=== PATIENT | female | born 1960 | race Caucasian/White ===

== ENCOUNTER 2022-06-08 02:44 | Day surgery (SDC) | payer BC, SELFPAY ==
[2022-05-29 13:06] VITALS: BMI 30.1
--- NOTE | 2022-06-05 14:35 | PM.HPGS ---
History of Present Illness History of Present Illness Consent: Risks, benefits, and alternatives have been discussed and questions answered. Patient agrees to proceed with procedure. Chief complaint: neoplasm screening, GERD Narrative: Rosalie Hernandez is a 62 year old female Referred for colon cancer screening. She has had polyps removed in the past. She also suffers from chronic acid reflux symptoms. A CT scan of the chest revealed possible polyps in the upper gastrointestinal tract. Review of Systems Review of Systems: All systems reviewed & are unremarkable except as noted in HPI and below [facility] Past Medical History Medical History COPD (chronic obstructive pulmonary disease) GERD (gastroesophageal reflux disease) Hyperlipidemia Hypertension Peripheral vascular disease Social History Social History Smoking packs per day: 1 Smoking cigarettes per day: 20.0 Years smoked: 50 Smoking pack-years: 50.00 Smoking status: Current every day smoker Tobacco type: cigarettes Alcohol intake: current Substance use: never Substance use type: does not use Living arrangements: with family Spiritual care concerns: No Meds Home Medications and Allergies Home Medications Medication Instructions Recorded Confirmed Type albuterol sulfate 90 mcg/actuation 1 inh inhalation QID PRN Shortness 07/27/19 05/29/22 History aerosol inhaler (ProAir HFA) Of Breath Or Wheezing amlodipine 10 mg tablet 10 mg PO QPM 07/27/19 05/29/22 History ascorbic acid (vitamin C) 1,000 mg 1 g PO DAILY 07/27/19 05/29/22 History tablet (Vitamin C) clopidogrel 75 mg tablet (Plavix) 75 mg PO DAILY 07/27/19 05/29/22 History omeprazole 20 mg capsule,delayed 20 mg PO DAILY 07/27/19 05/29/22 History release quinapril 20 mg tablet 20 mg PO DAILY 07/27/19 05/29/22 History Vitamin D3 1 cap PO DAILY 05/29/22 05/29/22 History aspirin 81 mg tablet 81 mg PO DAILY 05/29/22 05/29/22 History evolocumab 140 mg/mL subcutaneous 140 mg subcut [id number] 05/29/22 05/29/22 History pen injector (Repatha SureClick) Allergies Allergy/AdvReac Type Severity Reaction Status Date / Time Contrast Media Allergy Severe HIVES, Uncoded 06/08/22 09:07 ITCHING, HOT FEELING Exam Resp: Auscultation: clear to auscultation bilaterally Cardio: Rate: regular rate Rhythm: regular rhythm GI: GI Palp: Yes Soft to palpation and No Tenderness to palpation present (GI) Assessment and Plan Assessment and plan (1) Colon cancer screening: Code(s): Z12.11 - Encounter for screening for malignant neoplasm of colon Status: Acute Assessment and Plan: Colonoscopy with possible biopsy or polypectomy or cautery or injection of substances. (2) GERD (gastroesophageal reflux disease): Code(s): K21.9 - Gastro-esophageal reflux disease without esophagitis Status: Acute Assessment and Plan: EGD with possible biopsy or dilatation or cautery.
[2022-06-08 09:08] VITALS: BP 150/89; PULSE 97; RESP 18; TEMP 36.1; O2SAT 97; BMI 29.7
[2022-06-08] MEDS: LACTATED RINGERS 1,000 ML 150 ML IV CONT (09:17)
--- NOTE | 2022-06-08 09:30 | WPDANESEPPF ---
Anes - Initial Pre Proc Eval Procedure: Operation Date: 06/08/22 10:00 Proposed Procedures p Esophagogastroduodenoscopy & Screening Colonoscopy - Sy Galeano MD Date/Time: 06/08/22 09:30 Surgeon: Sy Galeano MD Pre Op Diagnosis: neoplasm screening, GERD Patient Data Age: 62 Gender: F Height: 1.57 m Weight: 73.8 kg Last Vital Signs Temp 36.1 C L 06/08/22 09:08 Pulse 97 06/08/22 09:08 Resp 18 06/08/22 09:08 BP 150/89 H 06/08/22 09:08 Pulse Ox 97 06/08/22 09:08 O2 Del Method Room Air 06/08/22 09:08 Allergies Allergy/AdvReac Type Severity Reaction Status Date / Time Contrast Media Allergy Severe HIVES, Uncoded 06/08/22 09:07 ITCHING, HOT FEELING Home Medications Medication Instructions Recorded Confirmed Type albuterol sulfate 90 mcg/actuation 1 inh inhalation QID PRN Shortness 07/27/19 05/29/22 History aerosol inhaler (ProAir HFA) Of Breath Or Wheezing amlodipine 10 mg tablet 10 mg PO QPM 07/27/19 05/29/22 History ascorbic acid (vitamin C) 1,000 mg 1 g PO DAILY 07/27/19 05/29/22 History tablet (Vitamin C) clopidogrel 75 mg tablet (Plavix) 75 mg PO DAILY 07/27/19 05/29/22 History omeprazole 20 mg capsule,delayed 20 mg PO DAILY 07/27/19 05/29/22 History release quinapril 20 mg tablet 20 mg PO DAILY 07/27/19 05/29/22 History Vitamin D3 1 cap PO DAILY 05/29/22 05/29/22 History aspirin 81 mg tablet 81 mg PO DAILY 05/29/22 05/29/22 History evolocumab 140 mg/mL subcutaneous 140 mg subcut [id number] 05/29/22 05/29/22 History pen injector (Geena Hill) Patient hx anesthesia problems: none Family hx anesthesia problems: none Results Review: All pre-operative results and documents have been reviewed as part of the pre-operative evaluation. [facility] Past Medical History Medical History COPD (chronic obstructive pulmonary disease) GERD (gastroesophageal reflux disease) Hyperlipidemia Hypertension Peripheral vascular disease Social History Social History Smoking packs per day: 1 Smoking cigarettes per day: 20.0 Years smoked: 50 Smoking pack-years: 50.00 Smoking status: Current every day smoker Tobacco type: cigarettes Alcohol intake: current Substance use: never Substance use type: does not use Living arrangements: with family Spiritual care concerns: No Anes - Eval Final PreProcedure Day of Procedure 06/08/22 09:30 Patient weight: obese Heart: regular rate and rhythm Lungs: clear to auscultation Airway: Mallampati scale class III Neurological: alert and oriented ASA classification: III Emergent: no Anesthetic plan: proceed Anesthesia type and monitoring: general GIVS and standard monitoring Results Review: All pre-operative results and documents have been reviewed as part of the pre-operative evaluation. Informed Consent: The patient's anesthetic plan and its attendant risks and benefits were discussed with the patient/family/POA. Questions were solicited and answers provided to the satisfaction of the patient/family/POA.
--- NOTE | 2022-06-08 10:25 | SUR.OPER ---
EGD START 1005, END 1008 COLONOSCOPY START 1014, END 1025
[2022-06-08 10:30] VITALS: BP 96/64; PULSE 79; RESP 19; O2SAT 94
[2022-06-08 10:40] VITALS: BP 134/83; PULSE 78; RESP 19; O2SAT 96
[2022-06-08 10:50] VITALS: BP 143/79; PULSE 72; RESP 21; O2SAT 98
== END 2022-06-08 11:02 | disposition home or self-care (01) ==
PROVIDERS: PCP Internal Medicine; Visit Provider Internal Medicine Gastroenterology
PROC: 0DJ08ZZ Inspection of Upper Intestinal Tract, Via Natural or Artificial Opening Endoscopic (ICD-10-PCS; CPT 43235; principal; 2022-06-08 10:00)
DX: Z12.11 Encounter for screening for malignant neoplasm of colon (principal); K57.30 Diverticulosis of large intestine without perforation or abscess without bleeding; Z86.010 Personal history of colon polyps; K21.9 Gastro-esophageal reflux disease without esophagitis; I10 Essential (primary) hypertension; E78.5 Hyperlipidemia, unspecified; I49.3 Ventricular premature depolarization; J44.9 Chronic obstructive pulmonary disease, unspecified; F17.210 Nicotine dependence, cigarettes, uncomplicated; E66.9 Obesity, unspecified; Z68.29 Body mass index [BMI] 29.0-29.9, adult; Z79.51 Long term (current) use of inhaled steroids; Z79.82 Long term (current) use of aspirin
CPT/HCPCS: 45378; 43239; 87081; J2704; J7120

== ENCOUNTER 2023-03-09 11:47 | Outpatient (CLI) | payer BC, SELFPAY ==
--- NOTE | ~2023-03-09 | PE_ITS ---
EXAMINATION: PET skull to mid thigh DATE: 03/09/2023 13:57 INDICATION: Lung nodules TECHNIQUE: Blood glucose level was 110 mg/dL. 11.077 mCi of 18-fluorodeoxyglucose (18-FDG) was admini stered i.v. Low dose computed tomography (CT) images were acquired from the base of the brain to the proximal thighs for attenuation correction and anatomic localization. Positron emission tomography (P ET) images were acquired in the same distribution beginning 62 minutes after injection. Images includ ing fused PET/CT images were reconstructed in axial, coronal, and sagittal planes. Automated exposure control technique was employed. The dose-length product was 582.25 mGy-cm. COMPARISON: None FINDINGS: Head/neck: There is symmetric increased activity in the oral cavity, palatine tonsils, laryngeal muscles and ocu lar muscles without CT correlate, likely physiologic. 7 mm FDG avid nodule at the posterior right par otid gland with maximal SUV of 8.0 which could represent either primary parotid neoplasm either benig n or malignant or intraparotid lymph node which could be reactive or metastatic. Chest: 2.2 cm FDG avid mass in the superior segment of the right lower lobe with maximal SUV of 16 which is concerning for primary bronchogenic carcinoma. Mild atelectasis at the lingula. No other suspicious p ulmonary nodules, pneumonia, pulmonary edema or pleural effusion. Heart size is normal. Atherosclerot ic coronary artery calcification. No pericardial effusion. Thoracic aorta is normal in caliber. No pa thologically enlarged or FDG avid thoracic hilar or mediastinal lymphadenopathy. Mild FDG uptake asso ciated with a couple normal-sized likely reactive bilateral axillary lymph nodes with central fatty h quang and with maximal SUV of 3.7 on the left and 2.3 on the right. Abdomen/pelvis/proximal thighs: Physiologic renal accumulation and excretion of FDG activity in the kidneys, bladder and along portio ns of ureters. Diffuse hepatic steatosis. Normal degree and heterogenous pattern of increased uptake throughout the liver without radiologic correlate or dominant FDG avid lesion. Cholecystectomy clips at the gallbladder fossa. The pancreas, spleen and right adrenal gland are normal. 1.5 cm left adrena l nodule which is of relatively low density and without evident FDG activity most likely representing an adenoma. Mild to moderate uptake scattered throughout the bowels without radiologic correlate, al so likely physiologic. Normal appendix. Small fat-containing umbilical hernia. Bilateral common iliac artery stents. No other abnormal foci of increased FDG uptake or pathologically enlarged lymphadenop athy in the abdomen, pelvis or proximal thighs. Musculoskeletal: There is increased FDG uptake associated with severe facet osteoarthritis at L5-S1, left greater than right and on the left at C4-C5. Densely sclerotic lesion at the right humeral head without evident a bnormal PSMA activity consistent with a bone island. No other suspicious lytic, blastic or FDG avid b one lesions. Mild synovial uptake at the bilateral glenohumeral joints and extending along the long h ead biceps tendon sheaths. IMPRESSION: 1. Prominent increased FDG uptake associated with a 2.2 cm right lower lobe mass which is concerning for primary bronchogenic carcinoma. Recommend CT-guided percutaneous biopsy. 2. Moderate FDG uptake at a 7 mm right parotid nodule which could represent either benign or malignan t parotid neoplasm or reactive or metastatic lymph node. Recommend further evaluation with ultrasound -guided fine-needle aspiration. Reviewed, dictated and finalized at location L. IMPRESSION: 1. Prominent increased FDG uptake associated with a 2.2 cm right lower lobe mas s which is concerning for primary bronchogenic carcinoma. Recommend C
[2023-03-09 12:15] LABS: Glucose Point of Care 110 mg/dl (65-105)
== END 2023-03-09 11:48 | disposition home or self-care (01) ==
LOC: ANHIMG 11:48
PROVIDERS: PCP Internal Medicine; Visit Provider Internal Medicine
DX: R91.8 Other nonspecific abnormal finding of lung field (principal); D11.0 Benign neoplasm of parotid gland
CPT/HCPCS: 78815; A9552

== ENCOUNTER 2023-03-19 09:02 | Outpatient (CLI) | payer BC, SELFPAY ==
[2023-03-12 08:33] VITALS: BMI 30.2
--- NOTE | 2023-03-12 08:34 | PC.NURSE ---
Pre Radiology instructions Report to the outpatient [facility] on date 03/19/23 at time 0900 for procedure Time: 1100. YOU MAY BE MONITORED AT HOSPITAL FOR UP TO 4 HOURS AFTER YOUR PROCEDURE. A visitor will be allowed to accompany the patient into the hospital. You and your visitor will be asked to self-screen and do not enter if you have any COVID symptoms. A mask is OPTIONAL within the hospital. Patients are to have no food or drink 6 hours prior to procedure time Driving will be restricted after the procedure, you must have a person to drive you home. Labs will be drawn in preop area and once reviewed, you will be taken to radiology area for procedure. When the procedure is completed, you will be taken to outpatient where you will be monitored for several hours. You may have one visitor in this area. Other than holding anti-coagulants, patient may take other medication(s) as scheduled. Prior to your appointment date patients are instructed to hold anti-coagulants after discussing with ordering provider to stop. If unable to discontinue anti-coagulants please notify radiologist. ? No aspirin or warfarin (Coumadin) for 7 days prior to the procedure. ? No clopidogrel (Plavix), ticagrelor (Brilinta), prasugrel (Effient) or dabigatran (Pradaxa) for 5 days prior to the procedure. ? No rivaroxaban (Xarelto), apixaban (Eliquis), dipyridamole (Aggrenox or Persantine) or cilostazol (Pletal) for 2 days prior to the procedure. Medications to discontinue per physician: ASPIRIN, PLAVIX Date to take last dose: ASPIRIN - 7 DAYS PRIOR, PLAVIX - 5 DAYS PRIOR Please leave all valuables, including medications, at home the day of procedure. The hospital will not accept responsibility for valuables. Wear comfortable, loose fitting clothing.? Follow any additional instructions given to you from ordering provider. Telephone instructions given to RONALDO WILSON and asked if any additional questions and then verbalized understanding. Patient advised to call scheduling provider office or registration scheduling [phone] if any additional questions.
[2023-03-19] VITALS (10 sets, daily range): BP systolic 144–195; BP diastolic 78–90; PULSE 66–76; RESP 18; TEMP 36.3; O2SAT 97–100
--- NOTE | ~2023-03-19 | XR_ITS ---
EXAMINATION: XR chest 1V DATE: 03/19/2023 12:06 INDICATION: Right lung nodule status post percutaneous biopsy. TECHNIQUE: A single frontal view of the chest was obtained. COMPARISON: PET/CT 03/09/2023 FINDINGS: There is a nodule in right lower lobe. No pleural effusion. There is a small right pneumoth orax. The heart size is normal. IMPRESSION: 1. Nodule in right lung lower lobe suspicious for primary bronchogenic carcinoma. 2. Small right pneumothorax status post percutaneous biopsy. Reviewed, dictated and finalized at location A. IMPRESSION: 1. Nodule in right lung lower lobe suspicious for primary bronchogenic carcinom a. 2. Small right pneumothorax status post percutaneous biopsy.
--- NOTE | ~2023-03-19 | CT_ITS ---
EXAMINATION: CT biopsy lung w/imaging DATE: 03/19/2023 12:21 INDICATION: Right lung lower lobe nodule TECHNIQUE: The procedure including the risks, benefits, and alternatives and possibility of chest tub e placement were discussed with the patient. Risks discussed included infection, hemorrhage, approxim ately 1/3 risk of pneumothorax, approximately 1/10 risk of pneumothorax severe enough to warrant ches t tube placement, and rarely . The patient understood the risks and agreed to proceed. The patie nt was placed prone. The skin overlying the right lung was prepped and draped in sterile fashion. A nesthetic was administered with 1% lidocaine subcutaneously. A 19 gauge outer needle was advanced un rakesh CT guidance to the lesion of interest. A 20 gauge core biopsy needle was then used to obtain 3 co re biopsy specimens. The needle was removed and the entry site was cleaned and dressed. The mA was ad justed according to patient size. Iterative reconstruction technique was employed. The dose-length pr oduct was 162.06 mGy-cm. There were no immediate complications. FINDINGS: CT images demonstrate the outer needle tip adjacent to a 2.0 cm nodule in superior segment right lower lobe. IMPRESSION: 1. CT-guided core needle biopsy of a 2.0 cm nodule in superior segment right lower lobe. Reviewed, dictated and finalized at location A. IMPRESSION: 1. CT-guided core needle biopsy of a 2.0 cm nodule in superior segment right l ower lobe.
--- NOTE | ~2023-03-19 | XR_ITS ---
EXAMINATION: XR chest 1V portable DATE: 03/19/2023 12:57 INDICATION: Right lung nodule status post percutaneous biopsy. TECHNIQUE: A single frontal view of the chest was obtained. COMPARISON: Chest single view at 12 00 p.m. FINDINGS: There is a nodule in superior segment right lower lobe. There is a small right pneumothorax . No pleural effusion. The heart size is normal. IMPRESSION: 1. Nodule in superior segment right lower lobe suspicious for primary bronchogenic carcinoma. 2. Small right pneumothorax with slight improvement. Reviewed, dictated and finalized at location A. IMPRESSION: 1. Nodule in superior segment right lower lobe suspicious for primary bronchoge zoraida carcinoma. 2. Small right pneumothorax with slight improvement.
--- NOTE | ~2023-03-19 | XR_ITS ---
EXAMINATION: XR chest 1V portable DATE: 03/19/2023 14:55 INDICATION: Right lung nodule status post percutaneous biopsy. TECHNIQUE: A single frontal view of the chest was obtained. COMPARISON: Chest single view at 12:53 PM FINDINGS: There is a nodule in superior segment right lower lobe. No pleural effusion. There is a sma ll right pneumothorax. The heart size is normal. IMPRESSION: 1. Nodule in superior segment right lower lobe suspicious for primary bronchogenic carcinoma. 2. Small right pneumothorax with slight worsening. Reviewed, dictated and finalized at location A. IMPRESSION: 1. Nodule in superior segment right lower lobe suspicious for primary bronchoge zoraida carcinoma. 2. Small right pneumothorax with slight worsening.
[2023-03-19 09:40] LABS: Basophils Absolute Auto 0.1 K/mm3 (0.0-0.1); Basophils Percent Auto 0.9 % (0.2-1.2); Eosinophils Absolute Auto 0.4 K/mm3 (0-0.3); Eosinophils Percent Auto 3.5 % (0-4.4); Hematocrit 46.9 % (37.0-47.0); Hemoglobin 15.7 g/dL (12.0-15.0); Immature Granulocyte Absolute 0.11 K/mm3 (0.00-0.031); Lymphocytes Percent Auto 25.3 % (18.3-44.2); Mean Corpuscular HGB Conc 33.5 g/dl (32-36); Mean Corpuscular Hemoglobin 30.4 pg (26-34); Mean Corpuscular Volume 90.7 fl (80-100); Mean Platelet Volume 9.1 fl (7.4-10.4); Monocytes Absolute Auto 0.8 K/mm3 (0.1-0.6); Neutrophils Absolute Auto 6.6 K/mm3 (1.3-6.7); Neutrophils Percent Auto 62.3 % (45.5-73.1); Platelet Count Result 269 k/mm3 (150-375); Red Blood Count 5.17 M/mm3 (4.2-5.4); White Blood Count 10.7 K/mm3 (4.5-10.0)
[2023-03-19 09:52] LABS: INR 0.9; Prothrombin Time 13.1 Seconds (11.1-14.7)
--- NOTE | 2023-03-19 14:51 | SUR.PHASEII ---
PORTABLE CXR IN PROGRESS.
--- NOTE | 2023-03-19 15:11 | SUR.PHASEII ---
DR. ROB ZAVALETA FOR PATIENT TO GO HOME.
== END 2023-03-19 15:05 | disposition home or self-care (01) ==
PROVIDERS: PCP Internal Medicine; Visit Provider Radiology Diagnostic Radiology
PROC: BB24ZZZ Computerized Tomography (CT Scan) of Bilateral Lungs (ICD-10-PCS; CPT 32408; principal; 2023-03-19 11:00)
DX: R91.1 Solitary pulmonary nodule (principal); J95.811 Postprocedural pneumothorax; C34.91 Malignant neoplasm of unspecified part of right bronchus or lung
CPT/HCPCS: 32408; 36415; 71045; 85025; 85610; 88305; 88342

== ENCOUNTER 2023-04-08 12:00 | Outpatient (CLI) | payer BC, SELFPAY ==
--- NOTE | ~2023-04-08 | US_ITS ---
EXAMINATION: US FNA w image guidance DATE: 04/08/2023 14:41 INDICATION: Abnormal FDG avid right parotid nodule TECHNIQUE: A time-out was performed to verify the patient's name, date of , and procedure to be performed . The procedure and its benefits and risks were discussed with the patient. Risks specifically discus sed included bleeding and infection. The patient understood the risks and agreed to proceed. The neck was prepped and draped in the usual sterile manner. 0.5 mL of 0.5% bupivacaine was used for local a nesthesia. 6 passes were made with a 25G needle into the lesion. Appropriate needle location was do cumented with continuous sonographic guidance. A sterile bandage was applied. There were no immedia te complications. FINDINGS: Grayscale ultrasound images demonstrate biopsy needles advanced into a 12 x 8 x 5 mm hypoechoic nodul e along the posterior margin of the right parotid. The nodule has a small echogenic invagination sugg esting a lymph node with fatty hilum. IMPRESSION: 1. Successful ultrasound-guided fine needle aspiration of a 12 x 8 x 5 mm nodule at the posterior ri ght parotid gland corresponding in size and location to the lesion of concern on prior PET/CT. Reviewed, dictated and finalized at location A. IMPRESSION: 1. Successful ultrasound-guided fine needle aspiration of a 12 x 8 x 5 mm nodu le at the posterior right parotid gland corresponding in size and location to t he lesion of concern on prior PET/CT.
== END 2023-04-08 12:01 | disposition home or self-care (01) ==
PROVIDERS: PCP Internal Medicine; Visit Provider Internal Medicine
DX: R93.89 Abnormal findings on diagnostic imaging of other specified body structures (principal)
CPT/HCPCS: 10005; 88108; 88305; 88342

== ENCOUNTER 2023-05-26 14:19 | Outpatient (CLI) | payer BC, SELFPAY ==
--- NOTE | ~2023-05-26 | CT_ITS ---
EXAMINATION:CT diagnostic chest wo con DATE: 05/26/2023 14:51 INDICATION: Malignant neoplasm of lower lobe of right lung. TECHNIQUE: Computed tomography (CT) of the chest was performed without intravenous contrast. Automate d exposure control and iterative reconstruction technique were employed. The dose-length product (DLP ) was 401.94 mGy-cm. COMPARISON: PET/CT 03/09/2023 FINDINGS: The lungs demonstrate mild atelectasis. There is a 2.3 cm nodule in right lung lower lobe. There is mild emphysema. There is a 5 mm nodule at left major fissure, likely benign. Calcified left lung nodules and calcified left hilar lymph nodes are consistent with old granulomatous disease. No p leural effusion. The heart size is normal. There are coronary artery calcifications. No pericardial e ffusion. There is diffuse hepatic steatosis. There are changes of cholecystectomy. There is a 1.6 cm mass in left adrenal gland containing fat, consistent with a myelolipoma. There is severe thoracic sp ondylosis. IMPRESSION: 1. 2.3 cm nodule in right lung lower lobe that measured 2.1 cm on 03/19/2023, consistent with primary bronchogenic carcinoma. Reviewed, dictated and finalized at location E. IMPRESSION: 1. 2.3 cm nodule in right lung lower lobe that measured 2.1 cm on 03/19/2023, co nsistent with primary bronchogenic carcinoma.
== END 2023-05-26 14:20 | disposition home or self-care (01) ==
PROVIDERS: PCP Internal Medicine
DX: C34.31 Malignant neoplasm of lower lobe, right bronchus or lung (principal)
CPT/HCPCS: 71250